=== PATIENT | male | born 1960 | race Caucasian/White ===

== ENCOUNTER 2016-04-27 07:57 | Day surgery (SDC) | payer BC ==
[~2016-04-27] VITALS: Ht 175.3 cm; Wt 70.5 kg
[2016-04-27] VITALS (9 sets, daily range): BP systolic 115–203; BP diastolic 68–114; PULSE 49–70; RESP 16–20; TEMP 97.7–98.1; O2SAT 93–98
[~2016-04-27 07:57] MED LIST: ATEN-104 PO; BUPR-197 PO; EMTR1TAB2 PO/TUBE; ENAL10 PO; FENO50TA PO; FINA5TAB77 PO; LIPI10TA PO; PARO10TA PO; TAMS0.4C67 PO; VALT1TAB26 PO
[2016-04-27] MEDS ORDERED: VALA1TAB PO (08:44)
[2016-04-27] MEDS ORDERED: EMTR1TAB2 PO (08:44)
[2016-04-27] MEDS ORDERED: TAMS0.4C4 PO (08:44)
[2016-04-27] MEDS ORDERED: BUPR75TA PO (08:44)
[2016-04-27] MEDS ORDERED: CALC1TAB87 PO (08:44)
[2016-04-27] MEDS ORDERED: FINA5TAB2 PO (08:44)
[2016-04-27] MEDS ORDERED: ATOR1TAB18 PO (08:44)
[2016-04-27] MEDS ORDERED: ENAL20TA PO (08:44)
[2016-04-27] MEDS ORDERED: FENO145T2 PO (08:44)
[2016-04-27] MEDS ORDERED: PARO20TA2 PO (08:44)
[2016-04-27] MEDS ORDERED: ASPI1TAB69 PO (08:44)
[2016-04-27] MEDS ORDERED: ATEN25TA PO (08:44)
[2016-04-27] MEDS ORDERED: SODIUM CHLOR 0.9% 1000 ML INJ 1,000 ML IV SCH (08:45)
[2016-04-27] MEDS ORDERED: fentaNYL CITRATE 250 MCG/5 ML AMP ONE (08:46)
[2016-04-27] MEDS ORDERED: MIDAZOLAM HCL 5 MG/5 ML VIAL ONE (08:47)
[2016-04-27] MEDS ORDERED: LIDOCAINE 1%/EPINEPHrine 1:100,000 SOLN 20 ML VIAL ONE (09:42)
[2016-04-27] MEDS ORDERED: THROMBIN (TOPICAL) 5,000 UNIT VIAL ONE (10:32)
[2016-04-27] MEDS ORDERED: GELATIN 12 MM/7 MM FOAM ONE (10:35)
--- NOTE | 2016-04-27 11:23 | RADRPT ---
EXAM DATE/TIME: 04/27/2016 10:14 [place] COMPARISON: No previous studies available for comparison. INDICATIONS : Right renal mass. SEDATION TIME: 45 minutes BIOPSY SITE: MEDICATION(S): 1.) 5 mg midazolam (Versed) IV 2.) 150 mcg fentanyl (Sublimaze) FASHION MARKETER(s): Amarilis Antunez RN DEVICE(S): 1.) 18 gauge Latham blunt needle 2.) 18 gauge Temno core biopsy needle MEDICAL HISTORY : Hypertension. Hepatitis C. SURGICAL HISTORY : None. ENCOUNTER: Initial ACUITY: 1 day PAIN SCORE: 0/10 LOCATION: Bilateral abdomen A total of one core specimen(s) were obtained and sent to the laboratory for pathologic evaluation. Approximately 20 cc of bloody fluid was also aspirated and sent for cytology. PROCEDURE: 1. CT guided renal right biopsy and aspiration. 2. Conscious sedation with continuous EKG and oximetry monitoring. 3. EKG and oximetry remained stable throughout the procedure. Prior to the procedure informed consent was obtained. Any appropriate prior imaging studies were rev iewed. The site was prepped in a sterile fashion. Full sterile technique was used, including cap, mask, dionne rile gloves and gown and a large sterile sheet. Hand hygiene and 2% chlorhexidine and/or betadine/al cohol prep was utilized per protocol for cutaneous antisepsis. The skin and subcutaneous tissues wer e infiltrated with local anesthetic solution. With CT guidance the previously identified target was localized. An 18 gauge Latham blunt needle was placed into the cystic mass and approximately 20 cc of bloody fluid was removed and sent for laborat ory evaluation. A Biopsy was also performed using the prescribed needle as above. Adequate hemostasi s was obtained with compression at the puncture site. A combination solution of thrombin and Gelfoam was injected along the surface of the cystic mass afte r the biopsy. Follow-up CT scan reveals no hemorrhage. The patient tolerated the procedure well and there were no complications. The patient was returned to the Radiology Outpatient Unit in stable condition. CONCLUSION: Uncomplicated CT guided biopsy and aspiration of a complex right cystic renal mass. Malik Woodruff MD on April 27, 2016 at 11:14 Board Certified Radiologist. This report was verified electronically.
[2016-04-27] MEDS ORDERED: HYDROmorphone HCL 2 MG TAB PO PRN (11:30)
[2016-04-27 11:31] LABS: AUTOMATED NEUTROPHIL # 4.2 TH/MM3 (1.8-7.7); BASOPHIL % 0.5 % (0.0-2.0); EOSINOPHIL # 0.2 TH/MM3 (0-0.4); EOSINOPHIL % 2.2 % (0.0-4.0); HEMATOCRIT 42.3 % (39.0-51.0); HEMO FLAGS DIFF FINAL; LYMPH % 30.1 % (9.0-44.0); LYMPHOCYTE # 2.1 TH/MM3 (1.0-4.8); MEAN CELL VOLUME 96.6 FL (80.0-100.0); MEAN CORPUSCULAR HEMOGLOBIN 33.1 PG (27.0-34.0); MEAN CORPUSCULAR HGB CONC 34.3 % (32.0-36.0); MONO % 6.9 % (0.0-8.0); NEUT % 60.3 % (16.0-70.0); PLATELET COUNT 214 TH/MM3 (150-450); RED BLOOD COUNT 4.38 MIL/MM3 (4.50-5.90); RED CELL DISTRIBUTION WIDTH 13.7 % (11.6-17.2)
[2016-04-27 13:28] LABS: AUTOMATED NEUTROPHIL # 4.8 TH/MM3 (1.8-7.7); BASOPHIL % 0.4 % (0.0-2.0); EOSINOPHIL # 0.1 TH/MM3 (0-0.4); EOSINOPHIL % 1.6 % (0.0-4.0); HEMATOCRIT 40.2 % (39.0-51.0); HEMO FLAGS DIFF FINAL; LYMPH % 23.4 % (9.0-44.0); LYMPHOCYTE # 1.7 TH/MM3 (1.0-4.8); MEAN CELL VOLUME 95.9 FL (80.0-100.0); MEAN CORPUSCULAR HEMOGLOBIN 33.5 PG (27.0-34.0); MEAN CORPUSCULAR HGB CONC 34.9 % (32.0-36.0); MONO % 6.7 % (0.0-8.0); NEUT % 67.9 % (16.0-70.0); PLATELET COUNT 185 TH/MM3 (150-450); RED BLOOD COUNT 4.19 MIL/MM3 (4.50-5.90); RED CELL DISTRIBUTION WIDTH 13.9 % (11.6-17.2); WHITE BLOOD COUNT 7.1 TH/MM3 (4.0-11.0)
== END 2016-04-27 15:10 | disposition home or self-care (01) ==
LOC: HRAD 07:57 → HRIP 07:59 → EDSTATUS 08:00 → HRAD 15:10
PROVIDERS: ATTEND Specialist
DX: C64.1 Malignant neoplasm of right kidney, except renal pelvis (principal); B19.20 Unspecified viral hepatitis C without hepatic coma; I10 Essential (primary) hypertension
CPT/HCPCS: 50200; 77012; 85025; 88305; 88341; 88342; J2250; J3010; J7030; 88173

== ENCOUNTER 2016-05-11 13:15 | Inpatient (IN) | payer BC ==
[~2016-05-11] VITALS: Ht 175.3 cm; Wt 74.1 kg
[~2016-05-11 13:15] MED LIST changes: +ASPI1TAB69 PO; -ATEN-104 PO; +ATEN25TA PO; +ATOR1TAB18 PO; -BUPR-197 PO; +BUPR75TA PO; +CALC1TAB87 PO; +EMTR1TAB2 PO; -EMTR1TAB2 PO/TUBE; -ENAL10 PO; +ENAL20TA PO; +FENO145T2 PO; -FENO50TA PO; +FINA5TAB2 PO; -FINA5TAB77 PO; -LIPI10TA PO; -PARO10TA PO; +PARO20TA2 PO; +TAMS0.4C4 PO; -TAMS0.4C67 PO; +VALA1TAB PO; -VALT1TAB26 PO
[2016-05-19] MEDS ORDERED: ceFAZolin 1,000 MG/NS 100 ML IV PRN ×2 (05:45)
[2016-05-19] MEDS ORDERED: METOPROLOL TARTRATE 25 MG TAB PO PRN (06:00)
[2016-05-19] MEDS ORDERED: SODIUM CHLORID 0.9% 500 ML IV SCH (06:00)
[2016-05-19] MEDS ORDERED: LACTATED RINGER'S 1000 ML IV SCH (06:00)
[2016-05-19] MEDS ORDERED: INSULIN HUMAN REGULAR 1,000 UNITS/10 ML VIAL SQ PRN (06:00)
[2016-05-19 06:24] VITALS: BP 163/87; PULSE 53; RESP 20; TEMP 98; O2SAT 100
[2016-05-19] MEDS ORDERED: fentaNYL CITRATE 250 MCG/5 ML AMP ONE (10:17)
[2016-05-19] MEDS ORDERED: VASOPRESSIN INJ 20 UNITS/ML VIAL ONE (10:17)
[2016-05-19] MEDS ORDERED: ceFAZolin INJ 1,000 MG VIAL IV ONE (10:40)
[2016-05-19] MEDS ORDERED: SUGAMMADEX SODIUM 200 MG/2 ML VIAL IV PUSH ONE ×2 (10:45)
[2016-05-19 11:02] LABS: BLOOD GAS BASE EXCESS -1.8 mmol/L (-2-2); BLOOD GAS CARBOXYHEMOGLOBIN 2.9 % (0-4); BLOOD GAS HCO3 23 mmol/L (22-26); BLOOD GAS METHEMOGLOBIN 1.3 % (0-2); BLOOD GAS O2 HGB SATURATION 95 % (90-100); BLOOD GAS OXYGEN CONTENT 17.7 Vol % (12.0-20.0); BLOOD GAS PCO2 43 mmHg (38-42); BLOOD GAS PO2 217 mmHg (61-120); BLOOD GAS TOTAL HGB 12.9 G/DL (12.0-16.0); CRITICAL VALUE NO; STAT YES; TEMP CORR TO 98.6
[2016-05-19 11:25] LABS: BICARBONATE 24.5 MEQ/L (21.0-32.0); MAGNESIUM 1.4 MG/DL (1.5-2.5); POTASSIUM 3.7 MEQ/L (3.5-5.1)
--- NOTE | 2016-05-19 11:40 | PD.OP ---
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 Osmin Yap MD May 19, 2016 11:40
[2016-05-19] MEDS ORDERED: POTASSIUM CHLOR 20 MEQ PREMIX 100 ML ONE (11:44)
[2016-05-19] MEDS ORDERED: ONDANSETRON HCL 4 MG/2 ML VIAL IV PUSH PRN (11:45)
[2016-05-19] MEDS ORDERED: oxyCODONE/ACETAMINOPHEN 5 MG/325 MG TAB PO PRN (11:45)
[2016-05-19] MEDS ORDERED: MORPHINE SULFATE 4 MG/ML INJ IV PUSH PRN (11:45)
[2016-05-19] MEDS ORDERED: PHENYLEPH/NS 1000 MCG/10 ML SYR IV ONE (12:00)
[2016-05-19] MEDS ORDERED: SODIUM CHLOR 0.9% 250 ML INJ 250 ML IV ONE (12:00)
[2016-05-19] MEDS ORDERED: LACTATED RINGER'S 1000 ML INJ 3,000 ML IV ONE (12:00)
[2016-05-19] MEDS ORDERED: PROPOFOL 200 MG/20 ML AMP IV ONE (12:00)
[2016-05-19] MEDS ORDERED: ePHEDrine/NS 25 MG/5 ML SYR IV ONE (12:00)
[2016-05-19] MEDS ORDERED: NORMOSOL R INJ 2,000 ML IV ONE (12:00)
[2016-05-19] MEDS ORDERED: ONDANSETRON HCL 4 MG/2 ML VIAL IV PUSH ONE (12:00)
[2016-05-19] MEDS: SODIUM CHLOR 0.9% 1000 ML INJ 1,000 ML IV SCH ×2 (12:10→19:40)
[2016-05-19] MEDS ORDERED: LABETALOL HCL 100 MG/20 ML VIAL ONE (12:12)
[2016-05-19] MEDS ORDERED: ACETAMINOPHEN 1000 MG/100 ML VIAL IV ONE (12:15)
[2016-05-19] MEDS ORDERED: *morphine SULFATE 8 MG/ML PERIprocedure ONLY ONE ×2 (12:17→12:38)
[2016-05-19] MEDS ORDERED: MIDAZOLAM HCL 2 MG/2 ML VIAL ONE (12:20)
[2016-05-19] MEDS ORDERED: *MEPERIDINE 25 MG INJ VIAL PERIprocedural Use ONLY ONE (12:23)
[2016-05-19] MEDS ORDERED: DO NOT ADM ANY ANTICOAGULANT DRUGS XX PRN (12:30)
[2016-05-19 12:54] LABS: BASOPHIL % 0.3 % (0.0-2.0); EOSINOPHIL # 0.1 TH/MM3 (0-0.4); EOSINOPHIL % 0.4 % (0.0-4.0); HEMO FLAGS DIFF FINAL; LYMPH % 9.4 % (9.0-44.0); LYMPHOCYTE # 1.3 TH/MM3 (1.0-4.8); MEAN CELL VOLUME 96.9 FL (80.0-100.0); MONO % 5.3 % (0.0-8.0); NEUT % 84.6 % (16.0-70.0); PLATELET COUNT 198 TH/MM3 (150-450); RED BLOOD COUNT 3.92 MIL/MM3 (4.50-5.90); RED CELL DISTRIBUTION WIDTH 14.3 % (11.6-17.2); WHITE BLOOD COUNT 14.2 TH/MM3 (4.0-11.0)
[2016-05-19 13:10] LABS: BICARBONATE 24.1 MEQ/L (21.0-32.0); POTASSIUM 3.8 MEQ/L (3.5-5.1)
[2016-05-19] MEDS: PANTOPRAZOLE SODIUM 40 MG VIAL IV PUSH SCH (13:10)
[2016-05-19 13:18] VITALS: BP 137/71; PULSE 73; RESP 17; TEMP 95.9; O2SAT 100
[2016-05-19] MEDS: FINASTERIDE 5 MG TAB PO SCH (15:12)
[2016-05-19] MEDS: oxyCODONE/ACETAMINOPHEN 5 MG/325 MG TAB PO PRN ×2 (15:18→19:40)
[2016-05-19 16:00] VITALS: BP 128/78; PULSE 64; RESP 18; TEMP 95.8; O2SAT 99
[2016-05-19 16:08] VITALS: O2SAT 100
--- NOTE | 2016-05-19 17:08 | MB ---
cc: DEEPAK MCDERMOTT DO DATE OF CONSULTATION: 05/19/2016 REASON FOR CONSULTATION: Possible EKG changes. HISTORY OF PRESENT ILLNESS Max Mcdonald is a pleasant 55-year-old male who presents to [facility] for elective right kidney removal via robotic approach by Dr. Yap on May 19, 2016. Preoperatively he had an EKG done which, the date is cut off but appears to be maybe May 14, 2016 which shows sinus bradycardia at 53 beats per minute, T-wave inversions bilateral, mildly biphasic T-waves, anteriorly cannot rule out ischemia. He underwent no further testing from a cardiovascular standpoint preoperatively. Today he had a right radical nephrectomy by Dr. Yap. Once he was under anesthesia they started to notice possible change into the leads with ST depressions. Repeat EKG was done at that time and per their recommendations, there was no significant changes in the EKG and they continued on with the case. During the case he had no episodes of hypotension. I am seeing him postop any currently just has pain appropriately over the areas in the right lower quadrant where surgery was done. He denies chest pain or shortness of breath and is currently hemodynamically stable. PAST MEDICAL HISTORY 1. Hypertension for number of years. 2. Hepatitis C. 3. HIV positive. HIV positive with last known CD-4 count greater than 1000. PAST SURGICAL HISTORY 1. Cataract surgery bilaterally. 2. A right renal mass biopsy (April 02, 2016) 3. Right radical nephrectomy from a robotic standpoint (May 19, 2016). ALLERGIES AMOXICILLIN. MEDICATIONS 1. Finasteride 5 mg daily 2. Flomax 0.8 mg every night 3. Enalapril 20 mg daily 4. Budeprion 75 mg daily 5. Paroxetine 20 mg daily 6. Odessey 1 tablet daily 7. Atenolol 25 mg daily 8. Fenofibrate 145 mg daily 9. Lipitor 80 mg every night 10. Aspirin 81 mg daily 11. Acyclovir 1000 mg daily SOCIAL HISTORY The patient previously smoked a number years ago but quit. Denies alcohol abuse. Denies drug abuse. FAMILY HISTORY Denies premature coronary artery disease or sudden cardiac within the family. REVIEW OF SYSTEMS 14 systems were reviewed including osteopathic pertinent positives and negatives above, otherwise negative. PHYSICAL EXAMINATION VITAL SIGNS: Temperature 96.0, heart rate 75, blood pressure 137/71, respirations 17, pulse ox 100% on 2 liters. IN GENERAL: The patient appears well in no acute distress, alert, awake and oriented x3. Extraocular muscles intact. Mucous membranes moist. NECK: Supple. No JVD at 45 degrees. No carotid bruits heard bilaterally. Carotid upstroke is brisk in nature. HEART: Heart is regular rate and rhythm. Positive first and second heart sounds with no murmurs, gallops or rubs. PMI is nondisplaced. LUNGS: The lungs are clear to auscultation bilaterally. No wheezes, rales or rhonchi. ABDOMEN: Soft, mildly tender in the right lower quadrant over previous incisions. No guarding noted. EXTREMITIES: Show no clubbing, cyanosis or edema. Femoral and distal pulses intact bilaterally. NEUROLOGICALLY: No focal deficits. SKIN: Warm, dry and intact. OSTEOPATHICALLY: No kyphoscoliosis, lordosis or paraspinal tender points. RADIOLOGIC: Electrocardiogram (May 19, 2016 at 0855, intraoperatively) sinus bradycardia at 43 beats per minute, T-wave inversions anterior laterally. Possible LVH by voltage criteria with secondary changes versus ischemia. IMPRESSION 1. 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 Questionable EKG changes intraoperatively possibly due to LVH versus ischemia. 3. Longstanding hypertension 4. History HIV 5. History of hepatitis C. RECOMMENDATIONS 1. There was questionable EKG changes. After anesthesia was induced on Max. He has EKG intraoperatively shows some ST-T wave changes, although these may be secondary to LVH. 2. We will obtain an echo to look at his overall left ventricular function, left ventricular wall thickness and possible wall motion abnormalities. 3. We will check serial troponins to evaluate for possible intraoperative myocardial infarction although at this time I somewhat doubt this. 4. He should continue on his home medications from a cardiovascular standpoint. 5. Further recommendations will be made based on hospital course. Thank you for allowing me to see Max Mcdonald, if there are any questions please do not hesitate to call. Deepak Mcdermott DO VGP/ /3:17 PM /4:40 PM PAYAM
--- NOTE | 2016-05-19 17:11 | EKG ---
Date Performed: 05/19/2016 Time Performed: 08:55:15 PTAGE: 55 years EKG: SINUS BRADYCARDIA MODERATE INTRAVENTRICULAR CONDUCTION DELAY ST DEVIATION AND MARKED T-WAVE ABNORMALITY, CONSIDER ANTEROLATERAL ISCHEMIA ABNORMAL ECG NO PREVIOUS TRACING DOCTOR: Sudeep Barros Interpretating Date/Time 05/19/2016 17:05:44
[2016-05-19] MEDS: DOCUSATE SODIUM 100 MG CAP PO SCH (19:38)
[2016-05-19] MEDS: ATORVASTATIN 80 MG TAB PO SCH (19:38)
[2016-05-19] MEDS: TAMSULOSIN HCL 0.4 MG CAP PO SCH (19:39)
[2016-05-19 20:00] VITALS: BP 150/89; PULSE 61; RESP 19; TEMP 97.6; O2SAT 100
[2016-05-20] VITALS (7 sets, daily range): BP systolic 138–158; BP diastolic 82–90; PULSE 56–66; RESP 16–24; TEMP 97.7–99.1; O2SAT 94–100
[2016-05-20 00:21] LABS: POTASSIUM 3.8 MEQ/L (3.5-5.1)
[2016-05-20] MEDS: oxyCODONE/ACETAMINOPHEN 5 MG/325 MG TAB PO PRN ×3 (04:51→20:55)
[2016-05-20] MEDS: SODIUM CHLOR 0.9% 1000 ML INJ 1,000 ML IV SCH ×3 (05:20→20:00)
--- NOTE | 2016-05-20 07:14 | MP ---
cc: FINESSE RANDHAWA MD, DANIEL A. M.D. DATE OF OPERATION 05/19/2016 PREOPERATIVE DIAGNOSES 1. 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 2. Hepatitis C. POSTOPERATIVE DIAGNOSES 1. 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 2. Hepatitis C. PROCEDURE PERFORMED Right robotic radical nephrectomy. SURGEON MD Marely ANESTHESIA General. COMPLICATIONS None. ANTIBIOTICS Ancef 1 gram IV. DRAINS 6-Syriac Chadwick catheter. SPECIMENS Right kidney for permanent. BLOOD LOSS 50 mL. FLUIDS 2500 mL crystalloids. DISPOSITION Stable to recovery. INDICATIONS The patient is a 55-year-old male who was found to have an incidental right lower pole renal mass approximately 6 cm in size. The patient had a CT guided biopsy that came back consistent with papillary renal cell carcinoma. The treatment options were discussed including laparoscopic-assisted robotic right radical nephrectomy. He elected to proceed with laparoscopic removal of the right kidney. After the risks, benefits and alternatives were explained to the patient including the risk of renal failure and renal dialysis, he elected to proceed and informed consent was obtained. DETAILS OF PROCEDURE The patient was properly identified, brought back to the operating, laid supine on the operating table. Proper time-out was performed under the direction of anesthesiology. The patient was induced under general anesthetic. Preop antibiotics in the form of Ancef 1 gram IV was given prior to start of the procedure. The patient was then prepped and draped in normal sterile surgical fashion and placed in the left lateral decubitus position with right side up. All pressure points were padded, however, prior to making incision the anesthesiologist noticed abnormal changes in his wave pattern on his hse specialist suggestive of a possible myocardial infarction. Therefore we then repositioned the patient back in the supine position. A formal 12-lead EKG was then performed. It did show some minor changes compared to his EKG from 10 days ago. However, it was different than the waveforms on the hse specialist. After discussing with Anesthesia, they thought it would be safe to proceed with the procedure and have a cardiac consult obtained after the case while he was in the hospital. Therefore, we then repositioned the patient into the left lateral decubitus position right side up. All pressure points were padded. Using an 11 blade scalpel, I then made a stab incision just superior and lateral to his umbilicus. A Veress needle was then used to gain access to the abdominal cavity. Pneumoperitoneum was achieved. I then extended the stab incision. Under direct visualization I inserted the 12-mm camera port. The abdominal cavity was then inspected. There was no of any adhesions, no evidence any intraabdominal injury or bleeding. At this time I then placed the remaining ports under direct visualization, beginning with the right-handed, 8-mm office assistant robotic port two fingerbreadths below the subcostal margin and a fingerbreadth away from the camera port. I then placed a 5-mm port in the midline just below the xiphoid process for liver retraction. Under direct visualization I then passed a locking retractor and retracted the liver cephalad. This provided excellent exposure of the upper pole of the right kidney. At this time the other 8-mm robotic port was then placed a handbreadth off of the ASIS and triangulated off of the camera port. A 12-mm office assistant port was then placed in the midline inferior to the umbilicus. Again all ports were placed under direct visualization. At this time the robot was then brought into position and then took down to the white line of Toldt and reflected the colon medially. The renal mass and kidney were easily exposed. The kocherized the duodenum to expose the inferior vena cava. I then carefully dissected off the gonadal vein and spared the gonadal vein. I then developed a space between the ureter and the psoas muscle and retracted the kidney into the anterior abdominal wall. I then dissected up the psoas muscle, along the inferior vena cava until I reached the hilum. At that time I found two separate renal arteries and a renal vein. Each was dissected out circumferentially. The accessory lower pole renal artery was then taken with endovascular GI stapler. The remaining small renal artery and single renal vein were then taken together with endovascular GI stapler. The hilum appeared to be dry. Using the robotic vessel sealer I then took down the upper pole attachments from the liver. This was hemostatic as well. The lateral pole attachments were then freed as well leaving only the ureter intact at the lower pole as well as the tail of Gerota. Using endovascular GI stapler, I divided the ureter and tail of Gerota's. At this point the kidney was completely free and mobilized. It was then placed in an EndoCatch bag for later removal. The hilum was carefully inspected. There is no evidence of any bleeding. The liver appeared to be unharmed as well. At this time the pneumoperitoneum was dropped down to 7 mmHg. Again the hilum and adrenal bed were inspected. Hemostasis was excellent. Three cans of Felipe were then placed in the renal fossa along the hilum and adrenal bed. Again no bleeding was seen. At this time the liver retractor was then removed under direct visualization. The liver was then placed back in proper positioning. The robot was then undocked. I transferred the EndoCatch bag to the left-hand robotic port. This incision was extended. The kidney was removed in the EndoCatch bag and sent off to the pathologist. However, I did divide the epigastrics so there was some minor bleeding. These were controlled with Hem-o-ryan clips. The fascia and peritoneum was closed with a running 1-0 PDS. A second look was then performed inside the abdomen. The incision was free of any bowel within the abdominal cavity. There was no evidence of any bleeding. All ports were then removed under direct visualization including the camera port. The incisions were then closed with 4-0 Monocryl. This concluded the procedure. The patient was extubated and sent to recovery in stable condition. Sponge and needle count was correct at the end of the case. He will be admitted for routine postop care as well as obtaining a cardiac consult due to his abnormal EKG changes. MD SMITHA Marcano/BEN /12:04 PM /6:41 AM
[2016-05-20] MEDS: DOCUSATE SODIUM 100 MG CAP PO SCH ×2 (08:24→20:22)
[2016-05-20] MEDS: ATENOLOL 25 MG TAB PO SCH (08:24)
[2016-05-20] MEDS: buPROPion HCL 75 MG TAB PO SCH (08:24)
[2016-05-20] MEDS: PARoxetine HCL 20 MG TAB PO SCH (08:24)
[2016-05-20] MEDS: valACYclovir HCL 500 MG TAB PO SCH (08:24)
[2016-05-20] MEDS: FINASTERIDE 5 MG TAB PO SCH (08:24)
[2016-05-20] MEDS: ENALAPRIL MALEATE 10 MG TAB PO SCH (08:24)
[2016-05-20] MEDS ORDERED: OXYC1TAB63 PO (08:46)
[2016-05-20] MEDS ORDERED: [UNRECOGNIZED DRUG - OTHER] PO SCH (09:00)
[2016-05-20] MEDS ORDERED: EMTRICITABINE RILPIVIRINE TENOFOVIR ALAFENAM PO SCH (09:00)
--- NOTE | 2016-05-20 09:08 | PD.CARD.PN ---
Subjective Subjective Remarks No chest pain, no shortness of breath, less abdominal pain Objective Medications Current Medications Medications (Trade) Dose Ordered Sig/Ajay Route Start Time Stop Time Status Last Admin (NS 1000 ml Inj) 1,000 ml @ 125 mls/hr Q8H IV 05/19/16 12:00 05/20/16 05:20 (Colace) 100 mg BID PO 05/19/16 21:00 05/20/16 08:24 (Percocet 5-325 Mg) 2 tab Q4H PRN PO 05/19/16 11:45 05/20/16 04:51 (Percocet 5-325 Mg) 1 tab Q4H PRN PO 05/19/16 11:45 (Protonix Inj) 40 mg Q24H IV PUSH 05/19/16 13:00 05/19/16 13:10 Ondansetron HCl 4 mg 4 mg Q6HR PRN IV PUSH 05/19/16 11:45 (Ancef Inj/NS Inj) 100 ml @ 200 mls/hr Q8H IV 05/19/16 14:00 05/20/16 05:20 (Morphine Inj) 3 mg Q3H PRN IV PUSH 05/19/16 11:45 Miscellaneous Information ALL NURSING DEPARTME... UNSCH PRN XX 05/19/16 12:30 05/20/16 12:29 (Tenormin) 25 mg DAILY PO 05/20/16 09:00 05/20/16 08:24 (Lipitor) 80 mg HS PO 05/19/16 21:00 05/19/16 19:38 (Wellbutrin) 75 mg DAILY PO 05/20/16 09:00 05/20/16 08:24 (Vasotec) 20 mg DAILY PO 05/20/16 09:00 05/20/16 08:24 (Proscar) 5 mg DAILY PO 05/19/16 15:00 05/20/16 08:24 (Paxil) 20 mg DAILY PO 05/20/16 09:00 05/20/16 08:24 (Flomax) 0.8 mg HS PO 05/19/16 21:00 05/19/16 19:39 (Valtrex) 1,000 mg DAILY PO 05/20/16 09:00 05/20/16 08:24 Patient Own Medication PT OWN MED:(Emtricitabine-Rilpivi... DAILY PO 05/20/16 09:00 Hold Vital Signs / I&O Vital Signs Date Time Temp Pulse Resp B/P Pulse Ox O2 Delivery O2 Flow Rate FiO2 05/20/16 05:51 18 05/20/16 00:00 98.3 56 18 158/90 100 05/19/16 20:00 97.6 61 19 150/89 100 05/19/16 16:08 100 Nasal Cannula 2.00 05/19/16 16:00 95.8 64 18 128/78 99 05/19/16 13:18 95.9 73 17 137/71 100 05/19/16 12:51 97.8 76 14 140/93 100 Nasal Cannula 2 05/19/16 12:45 74 16 139/88 100 Nasal Cannula 2 05/19/16 12:30 72 17 141/92 100 Nasal Cannula 2 05/19/16 12:15 82 14 151/99 100 Nasal Cannula 2 05/19/16 12:08 97.7 95 15 156/93 100 Nasal Cannula 2 I/O 05/19/16 05/19/16 05/19/16 05/20/16 05/20/16 05/20/16 07:00 15:00 23:00 07:00 15:00 23:00 Intake Total 3275 ml 885 ml 1474 ml Output Total 1050 ml 700 ml 5050 ml Balance 2225 ml 185 ml -3576 ml Intake Oral 240 ml 240 ml IV Total 275 ml 645 ml 1234 ml Other 3000 ml Output Urine Total 700 ml 5050 ml Estimated Blood Loss 50 ml Other 1000 ml # Bowel Movements 0 0 Physical Exam GENERAL: NAD, AAOx3 SKIN: Warm and dry. HEAD: Atraumatic. Normocephalic. EYES: Pupils equal and round. No scleral icterus. No injection or drainage. ENT: No nasal bleeding or discharge. Mucous membranes pink and moist. NECK: Trachea midline. No JVD. CARDIOVASCULAR: Regular rate and rhythm. RESPIRATORY: No accessory muscle use. Clear to auscultation. Breath sounds equal bilaterally. GASTROINTESTINAL: Abdomen appropriate tenderness post-surgery. MUSCULOSKELETAL: Extremities without clubbing, cyanosis, or edema. No obvious deformities. NEUROLOGICAL: Awake and alert. No obvious cranial nerve deficits. Motor grossly within normal limits. Five out of 5 muscle strength in the arms and legs. Normal speech. PSYCHIATRIC: Appropriate mood and affect; insight and judgment normal. Laboratory Laboratory Tests Test 05/19/16 05/19/16 05/19/16 05/19/16 10:40 10:55 12:25 16:38 Sodium Level 141 MEQ/L 141 MEQ/L Potassium Level 3.7 MEQ/L 3.8 MEQ/L Chloride Level 109 MEQ/L 108 MEQ/L Carbon Dioxide Level 24.5 MEQ/L 24.1 MEQ/L Anion Gap 8 MEQ/L 9 MEQ/L Blood Urea Nitrogen 23 MG/DL 24 MG/DL Creatinine 1.58 MG/DL 1.70 MG/DL Estimat Glomerular Filtration 46 ML/MIN 42 ML/MIN Rate Random Glucose 138 MG/DL 129 MG/DL Calcium Level 8.5 MG/DL 8.5 MG/DL Magnesium Level 1.4 MG/DL Blood Gas Puncture Site DRAWN IN OR Blood Gas Patient Temperature 98.6 Blood Gas HCO3 23 mmol/L Blood Gas Base Excess -1.8 mmol/L Blood Gas Oxygen Saturation 95 % Arterial Blood pH 7.35 Arterial Blood Partial 43 mmHg Pressure CO2 Arterial Blood Partial 217 mmHg Pressure O2 Arterial Blood Oxygen Content 17.7 Vol % Arterial Blood 2.9 % Carboxyhemoglobin Arterial Blood Methemoglobin 1.3 % Blood Gas Hemoglobin 12.9 G/DL White Blood Count 14.2 TH/MM3 Red Blood Count 3.92 MIL/MM3 Hemoglobin 12.9 GM/DL Hematocrit 38.0 % Mean Corpuscular Volume 96.9 FL Mean Corpuscular Hemoglobin 33.0 PG Mean Corpuscular Hemoglobin 34.0 % Concent Red Cell Distribution Width 14.3 % Platelet Count 198 TH/MM3 Mean Platelet Volume 9.2 FL Neutrophils (%) (Auto) 84.6 % Lymphocytes (%) (Auto) 9.4 % Monocytes (%) (Auto) 5.3 % Eosinophils (%) (Auto) 0.4 % Basophils (%) (Auto) 0.3 % Neutrophils # (Auto) 12.0 TH/MM3 Lymphocytes # (Auto) 1.3 TH/MM3 Monocytes # (Auto) 0.7 TH/MM3 Eosinophils # (Auto) 0.1 TH/MM3 Basophils # (Auto) 0.0 TH/MM3 CBC Comment DIFF FINAL Differential Comment Troponin I LESS THAN 0.02 NG/ML Test 05/19/16 05/20/16 23:30 03:11 Sodium Level 143 MEQ/L Potassium Level 3.8 MEQ/L Chloride Level 110 MEQ/L Carbon Dioxide Level 26.0 MEQ/L Anion Gap 7 MEQ/L Blood Urea Nitrogen 20 MG/DL Creatinine 1.58 MG/DL Estimat Glomerular Filtration 46 ML/MIN Rate Random Glucose 89 MG/DL Calcium Level 7.9 MG/DL Troponin I 0.02 NG/ML LESS THAN 0.02 NG/ML Assessment and Plan Problem List: (1) Renal cell carcinoma (2) S/p nephrectomy (3) Hypertension (4) LVH (left ventricular hypertrophy) due to hypertensive disease Assessment and Plan 1) No complaints over night 2) Troponins negative x 3 3) Await echocardiogram Cj Alvarez DO May 20, 2016 09:08
--- NOTE | 2016-05-20 11:17 | HHI.PR ---
Subjective Remarks did well overnight. Abdominal pain controlled. Denies CP/SOB. tolerating clears. Passing Flatus. Has not been OOB. Objective Vital Signs Vital Signs Date Time Temp Pulse Resp B/P Pulse Ox O2 Delivery O2 Flow Rate FiO2 05/20/16 08:00 98.3 61 20 151/84 99 05/20/16 05:51 18 05/20/16 00:00 98.3 56 18 158/90 100 05/19/16 20:00 97.6 61 19 150/89 100 05/19/16 16:08 100 Nasal Cannula 2.00 05/19/16 16:00 95.8 64 18 128/78 99 05/19/16 13:18 95.9 73 17 137/71 100 05/19/16 12:51 97.8 76 14 140/93 100 Nasal Cannula 2 05/19/16 12:45 74 16 139/88 100 Nasal Cannula 2 05/19/16 12:30 72 17 141/92 100 Nasal Cannula 2 05/19/16 12:15 82 14 151/99 100 Nasal Cannula 2 05/19/16 12:08 97.7 95 15 156/93 100 Nasal Cannula 2 I/O 05/19/16 05/19/16 05/19/16 05/20/16 05/20/16 05/20/16 07:00 15:00 23:00 07:00 15:00 23:00 Intake Total 3275 ml 885 ml 1474 ml 120 ml Output Total 1050 ml 700 ml 5050 ml Balance 2225 ml 185 ml -3576 ml 120 ml Intake Oral 240 ml 240 ml 120 ml IV Total 275 ml 645 ml 1234 ml Other 3000 ml Output Urine Total 700 ml 5050 ml Estimated Blood Loss 50 ml Other 1000 ml # Bowel Movements 0 0 Result Diagram: 05/19/16 1225 05/19/16 2330 Objective Remarks NAD. A/O x 3 RRR non-labored respirations abd soft, non distended, NT. No peritoneal signs. dressing dry Ext NT. no c/c/e Assessment and Plan Assessment and Plan POD #1 s/p Right Robotic Radical Nephrectomy -Advance diet -Good UOP -Ambulate -GI/DVT -Hep lock -Appreciate Cardiology input. Await Echo. -Likely d/c home tomorrow Osmin Yap MD May 20, 2016 11:17
[2016-05-20] MEDS: PANTOPRAZOLE SODIUM 40 MG VIAL IV PUSH SCH (13:01)
--- NOTE | 2016-05-20 15:07 | EC ---
Study Study Date:05/20/2016 STUDY CONCLUSIONS SUMMARY - Procedure narrative: Transthoracic echocardiography. Image quality was poor. Scanning was performed from the parasternal, apical, and subcostal acoustic windows. - Left ventricle: The cavity size was normal. Wall thickness was normal. Systolic function was normal. The estimated ejection fraction was in the range of 50% to 55%. Wall motion was normal; there were no regional wall motion abnormalities. - Aortic valve: Valve area: 3.17cm^2 (Vmax). - Mitral valve: Mild regurgitation. If LV function is below 40, please consider prescribing an ACEI or ARB or document rationale for non-use. PROCEDURE DATA STUDY STATUS: Elective. Procedure: Transthoracic echocardiography. Image quality was poor. Scanning was performed from the parasternal, apical, and subcostal acoustic windows. Study completion: The patient tolerated the procedure well. Transthoracic echocardiography. M-mode, complete 2D, complete spectral Doppler, and color Doppler. Height: Height: 69in. Weight: Weight: 162.7lb. Body mass index: BMI: 24.1kg/m^2. Body surface area: BSA: 1.89m^2. Patient status: Inpatient. CARDIAC ANATOMY LEFT VENTRICLE: The cavity size was normal. Wall thickness was normal. Systolic function was normal. The estimated ejection fraction was in the range of 50% to 55%. Wall motion was normal; there were no regional wall motion abnormalities. AORTIC VALVE: Trileaflet; normal thickness leaflets. Doppler: Transvalvular velocity was within the normal range. There was no stenosis. No regurgitation. Valve area: 3.17cm^2 (Vmax). Indexed valve area: 1.68cm^2/m^2 (Vmax). AORTA: Aortic root: The aortic root was normal in size. MITRAL VALVE: Structurally normal valve. Doppler: Transvalvular velocity was within the normal range. There was no evidence for stenosis. Mild regurgitation. LEFT ATRIUM: The atrium was normal in size. RIGHT VENTRICLE: The cavity size was normal. Wall thickness was normal. PULMONIC VALVE: Doppler: Transvalvular velocity was within the normal range. There was no evidence for stenosis. No regurgitation. TRICUSPID VALVE: Structurally normal valve. Doppler: Transvalvular velocity was within the normal range. No regurgitation. PULMONARY ARTERY: The main pulmonary artery was normal-sized. Systolic pressure was within the normal range. RIGHT ATRIUM: The atrium was normal in size. PERICARDIUM: There was no pericardial effusion. SYSTEMIC VEINS: Inferior vena cava: The vessel was normal in size. Patient weight: 162.7lb _Ejection fraction:_ 65-75% _Fractional shortening:_ 32% up to 5Kg 5-11.5Kg 11.6-22.9Kg 23-45Kg 45-57Kg Aortic Root 7-13 <17 13-22 17-27 17-27 LA diam 6-13 <23 24-38 33-47 37-40 RVID 10-17 7-15 7-15 7-18 8-17 LVIDd 12-22 <32 24-38 33-47 37-40 LVPW 2-4 3-6 5-7 6-8 7-8 IVS 2-4 3-6 5-7 6-8 7-8 BASIC MEASUREMENTS ADULT NORMAL Left ventricle LV internal dimension, ED, chordal *56.4 mm 43-52 level, PLAX LV internal dimension, ES, chordal *47.4 mm 23-38 level, PLAX Fractional shortening, chordal level, *16 % >29 PLAX LV posterior wall thickness, ED 8.38 mm IVS/LVPW ratio, ED 1.05 <1.3 Ventricular septum Septal thickness, ED 8.77 mm Aortic valve Leaflet separation 22 mm 15-26 BASIC MEASUREMENTS ADULT NORMAL Aortic valve Leaflet separation 22 mm 15-26 Aorta Root diameter, ED 37 mm 20-37 Left atrium Anterior-posterior dimension, ES 33 mm 19-40 Anterior-posterior dimension index, ES 1.75 cm/m^2 <2.2 LA/aortic root ratio 0.89 DOPPLER MEASUREMENTS ADULT NORMAL Aortic valve Peak velocity, S 103 cm/s Valve area, Vmax 3.17 cm^2 Valve area index, Vmax 1.68 cm^2/m^2 Mitral valve Peak E-wave velocity 70.6 cm/s Peak A-wave velocity 56.8 cm/s Deceleration time *261 ms 150-230 Peak E/A ratio 1.2 Maximal regurgitant velocity 268 cm/s Pulmonic valve Peak velocity, S 113 cm/s LEGEND: Mean values are shown as u=mean value. Asterisk (*) beard values outside specified normal range. Prepared and signed by Rg Brush [id number]
[2016-05-20] MEDS: ATORVASTATIN 80 MG TAB PO SCH (20:22)
[2016-05-20] MEDS: TAMSULOSIN HCL 0.4 MG CAP PO SCH (20:22)
[2016-05-21] VITALS: BP 175/97; PULSE 65; RESP 18; TEMP 98.6; O2SAT 96
[2016-05-21] MEDS: SODIUM CHLOR 0.9% 1000 ML INJ 1,000 ML IV SCH (04:00)
[2016-05-21] MEDS: oxyCODONE/ACETAMINOPHEN 5 MG/325 MG TAB PO PRN (05:44)
[2016-05-21 08:00] VITALS: BP 203/95; PULSE 60; RESP 16; TEMP 97.2; O2SAT 96
[2016-05-21] MEDS: FINASTERIDE 5 MG TAB PO SCH (09:05)
[2016-05-21] MEDS: DOCUSATE SODIUM 100 MG CAP PO SCH (09:05)
[2016-05-21] MEDS: valACYclovir HCL 500 MG TAB PO SCH (09:05)
[2016-05-21] MEDS: buPROPion HCL 75 MG TAB PO SCH (09:05)
[2016-05-21] MEDS: PARoxetine HCL 20 MG TAB PO SCH (09:05)
[2016-05-21] MEDS: ENALAPRIL MALEATE 10 MG TAB PO SCH (09:05)
[2016-05-21] MEDS: ATENOLOL 25 MG TAB PO SCH (09:05)
[2016-05-21 10:04] VITALS: BP 156/89; PULSE 60; RESP 18; TEMP 98.4; O2SAT 95
[2016-05-21 12:00] VITALS: BP 187/105; PULSE 57; RESP 16; TEMP 98.3; O2SAT 97
--- NOTE | 2016-05-21 12:11 | PD.CARD.PN ---
Subjective Subjective Remarks No chest pain, no shortness of breath, appropriate abdominal pain Up and ambulating Objective Medications Current Medications Medications (Trade) Dose Ordered Sig/Ajay Route Start Time Stop Time Status Last Admin (NS 1000 ml Inj) 1,000 ml @ 125 mls/hr Q8H IV 05/19/16 12:00 05/20/16 05:20 (Colace) 100 mg BID PO 05/19/16 21:00 05/21/16 09:05 (Percocet 5-325 Mg) 2 tab Q4H PRN PO 05/19/16 11:45 05/21/16 05:44 (Percocet 5-325 Mg) 1 tab Q4H PRN PO 05/19/16 11:45 (Protonix Inj) 40 mg Q24H IV PUSH 05/19/16 13:00 05/20/16 13:01 Ondansetron HCl 4 mg 4 mg Q6HR PRN IV PUSH 05/19/16 11:45 05/20/16 10:11 (Ancef Inj/NS Inj) 100 ml @ 200 mls/hr Q8H IV 05/19/16 14:00 05/21/16 05:37 (Morphine Inj) 3 mg Q3H PRN IV PUSH 05/19/16 11:45 (Tenormin) 25 mg DAILY PO 05/20/16 09:00 05/21/16 09:05 (Lipitor) 80 mg HS PO 05/19/16 21:00 05/20/16 20:22 (Wellbutrin) 75 mg DAILY PO 05/20/16 09:00 05/21/16 09:05 (Vasotec) 20 mg DAILY PO 05/20/16 09:00 05/21/16 09:05 (Proscar) 5 mg DAILY PO 05/19/16 15:00 05/21/16 09:05 (Paxil) 20 mg DAILY PO 05/20/16 09:00 05/21/16 09:05 (Flomax) 0.8 mg HS PO 05/19/16 21:00 05/20/16 20:22 (Valtrex) 1,000 mg DAILY PO 05/20/16 09:00 05/21/16 09:05 Patient Own Medication PT OWN MED:(Emtricitabine-Rilpivi... DAILY PO 05/20/16 09:00 Hold Vital Signs / I&O Vital Signs Date Time Temp Pulse Resp B/P Pulse Ox O2 Delivery O2 Flow Rate FiO2 05/21/16 10:04 98.4 60 18 156/89 95 05/21/16 08:00 97.2 60 16 203/95 96 05/21/16 06:44 20 05/21/16 00:00 98.6 65 18 175/97 96 05/20/16 20:00 97.7 66 16 154/84 97 05/20/16 18:51 97 Nasal Cannula 2.00 05/20/16 16:00 99.1 64 24 152/85 97 05/20/16 13:51 94 21 I/O 05/20/16 05/20/16 05/20/16 05/21/16 05/21/16 05/21/16 07:00 15:00 23:00 07:00 15:00 23:00 Intake Total 1474 ml 1080 ml 240 ml 240 ml Output Total 5050 ml 600 ml 600 ml 900 ml Balance -3576 ml 480 ml -360 ml -660 ml Intake Oral 240 ml 1080 ml 240 ml 240 ml IV Total 1234 ml Output Urine Total 5050 ml 300 ml 600 ml 900 ml Stool Total 300 ml # Voids 2 # Bowel Movements 0 0 0 Physical Exam GENERAL: NAD, AAOx3 SKIN: Warm and dry. HEAD: Atraumatic. Normocephalic. EYES: Pupils equal and round. No scleral icterus. No injection or drainage. ENT: No nasal bleeding or discharge. Mucous membranes pink and moist. NECK: Trachea midline. No JVD. CARDIOVASCULAR: Regular rate and rhythm. RESPIRATORY: No accessory muscle use. Clear to auscultation. Breath sounds equal bilaterally. GASTROINTESTINAL: Abdomen appropriate tenderness post-surgery. MUSCULOSKELETAL: Extremities without clubbing, cyanosis, or edema. No obvious deformities. NEUROLOGICAL: Awake and alert. No obvious cranial nerve deficits. Motor grossly within normal limits. Five out of 5 muscle strength in the arms and legs. Normal speech. PSYCHIATRIC: Appropriate mood and affect; insight and judgment normal. Assessment and Plan Problem List: (1) Renal cell carcinoma (2) S/p nephrectomy (3) Hypertension (4) LVH (left ventricular hypertrophy) due to hypertensive disease Assessment and Plan 1) No complaints over night 2) Troponins negative x 3 3) Echo with no wall motion abnormalities, wall thickness measured as normal although fair to poor imaging, but visually appears to be LVH which would go with his EKG 4) Cardiovascularly stable for discharge, asked him to follow up in the office in 4-6 weeks, will see Cj London DO May 21, 2016 12:11
--- NOTE | 2016-05-21 13:10 | HHI.DS ---
Discharge Summary Admission Date May 19, 2016 at 05:26 Discharge Date: May 21, 2016 Admitting Diagnosis Renal Cell Carcinoma Procedures Right Robotic Radical Nephrectomy CBC/BMP: 05/19/16 1225 05/19/16 2330 Significant Findings Laboratory Tests Test 05/19/16 05/19/16 05/19/16 05/19/16 10:40 10:55 12:25 16:38 Chloride Level 109 MEQ/L 108 MEQ/L (98-107) (98-107) Blood Urea Nitrogen 23 MG/DL (7-18) 24 MG/DL (7-18) Creatinine 1.58 MG/DL 1.70 MG/DL (0.60-1.30) (0.60-1.30) Estimat Glomerular Filtration 46 ML/MIN (>89) 42 ML/MIN (>89) Rate Random Glucose 138 MG/DL 129 MG/DL (74-106) (74-106) Magnesium Level 1.4 MG/DL (1.5-2.5) Arterial Blood pH 7.35 (7.380-7.420) Arterial Blood Partial 43 mmHg (38-42) Pressure CO2 Arterial Blood Partial 217 mmHg Pressure O2 (61-120) White Blood Count 14.2 TH/MM3 (4.0-11.0) Red Blood Count 3.92 MIL/MM3 (4.50-5.90) Hemoglobin 12.9 GM/DL (13.0-17.0) Hematocrit 38.0 % (39.0-51.0) Neutrophils (%) (Auto) 84.6 % (16.0-70.0) Neutrophils # (Auto) 12.0 TH/MM3 (1.8-7.7) Troponin I LESS THAN 0.02 NG/ML (0.02-0.05) Test 05/19/16 05/20/16 23:30 03:11 Chloride Level 110 MEQ/L (98-107) Blood Urea Nitrogen 20 MG/DL (7-18) Creatinine 1.58 MG/DL (0.60-1.30) Estimat Glomerular Filtration 46 ML/MIN (>89) Rate Calcium Level 7.9 MG/DL (8.5-10.1) Troponin I LESS THAN 0.02 NG/ML (0.02-0.05) Hospital Course 55 yo male was admitted following a Right Robotic Radical Nephrectomy. He did well. Tolerating regular diet on POD #1. Catheter was removed and voiding on own. His bowel function returned immediately. Cardiology was consulted due to EKG changes during surgery. He was discharged home POD#2. Pt Condition on Discharge: Good Discharge Disposition: Discharge Home Discharge Instructions DIET: Follow Instructions for: Heart Healthy Diet Activities you can perform: Full Weight Bearing, Shower Only-No Bath Activities to avoid: Strenuous Activity New Medications: Oxycodone-Acetaminophen (Oxycodone-Acetaminophen) 5-325 mg Tab 2 TAB PO Q4H PRN PAIN GREATER THAN 5 #30 Ref 0 TAB Osmin Yap MD May 21, 2016 13:10
== END 2016-05-21 15:05 | disposition home or self-care (01) | DRG 658 ==
LOC: HSDI 05-19 05:26 → N07A 05-19 13:06
PROVIDERS: ADMIT Urology; ATTEND Urology
PROC: 8E0W4CZ Robotic Assisted Procedure of Trunk Region, Percutaneous Endoscopic Approach (ICD-10-PCS; 2016-05-19)
PROC: 0TT04ZZ Resection of Right Kidney, Percutaneous Endoscopic Approach (ICD-10-PCS; principal; 2016-05-19 07:48)
DX: C64.1 Malignant neoplasm of right kidney, except renal pelvis (principal); I11.9 Hypertensive heart disease without heart failure; B19.20 Unspecified viral hepatitis C without hepatic coma; Z21 Asymptomatic human immunodeficiency virus [HIV] infection status; Z87.891 Personal history of nicotine dependence; Z88.0 Allergy status to penicillin
CPT/HCPCS: 76937; 80048; 82805; 83735; 84484; 85025; 86850; 86900; 86901; 88307; 93005; 93306; 94150; C9113; J0131; J0690; J2175; J2250; J2270; J2370; J2405; J3010; J3480; J7030; J7050; J7120

== ENCOUNTER 2017-04-29 17:00 | Inpatient (IN) | payer BC ==
[2017-04-29] MEDS ORDERED: SODIUM CHLORIDE 0.9% FLUSH 10 ML FLUSH IV FLUSH ×2 (17:45→20:15)
[2017-04-29 17:59] LABS: AUTOMATED NEUTROPHIL # 5.9 TH/MM3 (1.8-7.7); BASOPHIL % 0.1 % (0.0-2.0); HEMATOCRIT 37.7 % (39.0-51.0); HEMO FLAGS DIFF FINAL; HEMOGLOBIN 13.1 GM/DL (13.0-17.0); LYMPH % 11.1 % (9.0-44.0); LYMPHOCYTE # 0.8 TH/MM3 (1.0-4.8); MEAN CELL VOLUME 99.2 FL (80.0-100.0); MEAN CORPUSCULAR HEMOGLOBIN 34.5 PG (27.0-34.0); MEAN CORPUSCULAR HGB CONC 34.7 % (32.0-36.0); MEAN PLATELET VOLUME 8.6 FL (7.0-11.0); MONO % 8.1 % (0.0-8.0); MONOCYTE # 0.6 TH/MM3 (0-0.9); NEUT % 80.7 % (16.0-70.0); PLATELET COUNT 194 TH/MM3 (150-450); RED CELL DISTRIBUTION WIDTH 14.3 % (11.6-17.2); WHITE BLOOD COUNT 7.3 TH/MM3 (4.0-11.0)
[2017-04-29 18:11] LABS: ALBUMIN 3.5 GM/DL (3.4-5.0); ALT (GPT) 39 U/L (12-78); ANION GAP 12 MEQ/L (5-15); AST (GOT) 43 U/L (15-37); BICARBONATE 20.9 MEQ/L (21.0-32.0); BLOOD UREA NITROGEN 143 MG/DL (7-18); CALCIUM 9.6 MG/DL (8.5-10.1); CHLORIDE 100 MEQ/L (98-107); CREATININE 8.61 MG/DL (0.60-1.30); GLOMERULAR FILTRATION RATE 6 ML/MIN (>89); GLUCOSE,RANDOM 109 MG/DL (74-106); POTASSIUM 4.3 MEQ/L (3.5-5.1); SODIUM (NA) 133 MEQ/L (136-145)
[2017-04-29 18:14] LABS: ALKALINE PHOSPHATASE 64 U/L (45-117); TOTAL BILIRUBIN ADULT 0.3 MG/DL (0.2-1.0); TOTAL PROTEIN 7.8 GM/DL (6.4-8.2)
[2017-04-29] MEDS: SODIUM CHLOR 0.9% 1000 ML INJ 1,000 ML IV (18:40)
[2017-04-29] MEDS: cloNIDine HCL 0.1 MG TAB PO (18:40)
[2017-04-29] MEDS ORDERED: NALOXONE HCL 0.4 MG/ML AMP IV PUSH (20:15)
[2017-04-29 20:55] LABS: BILIRUBIN, URINE NEG (NEG); BLOOD, URINE SMALL (NEG); COMMENT (UR) CULTURE INDICATED; CULTURE IF INDICATED CULTURE INDICATED; GLUCOSE,URINE NEG (NEG); KETONE, URINE NEG (NEG); NITRITE,URINE NEG (NEG); PH, URINE 6.5 (5.0-8.5); SPERM, URINE RARE; URINE COLOR LIGHT-YELLOW (YELLW/STRAW); URINE LEUKOCYTE ESTERASE LARGE (NEG)
[2017-04-29] MEDS: predniSONE 10 MG TAB PO (21:01)
[2017-04-29] MEDS: SODIUM CHLORIDE 0.9% FLUSH 10 ML FLUSH IV FLUSH (21:01)
[2017-04-29] MEDS: MORPHINE SULFATE 2 MG/ML INJ IV PUSH (21:02)
[2017-04-30] MEDS: MORPHINE SULFATE 2 MG/ML INJ IV PUSH (01:12)
[2017-04-30] MEDS: cloNIDine HCL 0.2 MG TAB PO ×2 (03:54→09:37)
[2017-04-30] MEDS ORDERED: ENALAPRIL MALEATE 10 MG TAB PO (09:00)
[2017-04-30] MEDS: HYDROCHLOROTHIAZIDE 25 MG TAB PO (09:36)
[2017-04-30] MEDS: ASPIRIN 81 MG CHEW TAB CHEW (09:37)
[2017-04-30] MEDS: METOPROLOL SUCCINATE 25 MG EXTENDED RELEASE TAB PO (09:37)
[2017-04-30] MEDS: CITALOPRAM HYDROBROMIDE 40 MG TAB PO (09:38)
[2017-04-30] MEDS: FENOFIBRATE 145 MG TAB PO (09:39)
[2017-04-30] MEDS: valACYclovir HCL 500 MG TAB PO (09:39)
[2017-04-30] MEDS: FINASTERIDE 5 MG TAB PO (09:39)
[2017-04-30] MEDS: buPROPion HCL 75 MG TAB PO (09:39)
[2017-04-30] MEDS: ODEFSEY PO (09:43)
[2017-04-30] MEDS: SODIUM CHLORIDE 0.9% FLUSH 10 ML FLUSH IV FLUSH ×2 (09:43→21:27)
[2017-04-30 13:16] LABS: ANION GAP 10 MEQ/L (5-15); BICARBONATE 23.5 MEQ/L (21.0-32.0); BLOOD UREA NITROGEN 141 MG/DL (7-18); CALCIUM 8.9 MG/DL (8.5-10.1); CHLORIDE 104 MEQ/L (98-107); CREATININE 7.55 MG/DL (0.60-1.30); GLOMERULAR FILTRATION RATE 8 ML/MIN (>89); GLUCOSE,RANDOM 129 MG/DL (74-106); POTASSIUM 4.4 MEQ/L (3.5-5.1); SODIUM (NA) 137 MEQ/L (136-145)
[2017-04-30] MEDS: LEVOFLOXACIN 250 MG TAB PO (17:47)
[2017-04-30] MEDS: SODIUM CHLOR 0.45% 1000 ML INJ 1,000 ML IV (17:47)
[2017-04-30] MEDS: ATORVASTATIN 80 MG TAB PO (21:26)
[2017-04-30] MEDS: TAMSULOSIN HCL 0.4 MG CAP PO (21:27)
[2017-05-01 02:23] LABS: ANION GAP 12 MEQ/L (5-15); BICARBONATE 20.9 MEQ/L (21.0-32.0); BLOOD UREA NITROGEN 123 MG/DL (7-18); CALCIUM 8.2 MG/DL (8.5-10.1); CHLORIDE 104 MEQ/L (98-107); GLUCOSE,RANDOM 93 MG/DL (74-106); POTASSIUM 4.1 MEQ/L (3.5-5.1); SODIUM (NA) 137 MEQ/L (136-145)
[2017-05-01 02:30] LABS: CREATININE 6.53 MG/DL (0.60-1.30); GLOMERULAR FILTRATION RATE 9 ML/MIN (>89)
[2017-05-01] MEDS: SODIUM CHLOR 0.45% 1000 ML INJ 1,000 ML IV (04:35)
[2017-05-01 06:46] LABS: ANION GAP 12 MEQ/L (5-15); BICARBONATE 17.3 MEQ/L (21.0-32.0); BLOOD UREA NITROGEN 119 MG/DL (7-18); CHLORIDE 106 MEQ/L (98-107); CREATININE 6.01 MG/DL (0.60-1.30); GLOMERULAR FILTRATION RATE 10 ML/MIN (>89); GLUCOSE,RANDOM 89 MG/DL (74-106); PHOSPHORUS 6.2 MG/DL (2.5-4.9); POTASSIUM 4.2 MEQ/L (3.5-5.1); SODIUM (NA) 135 MEQ/L (136-145)
[2017-05-01 06:50] LABS: CREATINE KINASE 95 U/L (39-308)
[2017-05-01] MEDS: LEVOFLOXACIN 250 MG TAB PO (07:31)
[2017-05-01] MEDS: cloNIDine HCL 0.2 MG TAB PO (07:31)
[2017-05-01] MEDS: FINASTERIDE 5 MG TAB PO (07:31)
[2017-05-01] MEDS: METOPROLOL SUCCINATE 25 MG EXTENDED RELEASE TAB PO (07:32)
[2017-05-01] MEDS: ASPIRIN 81 MG CHEW TAB CHEW (07:32)
[2017-05-01] MEDS: CITALOPRAM HYDROBROMIDE 40 MG TAB PO (07:32)
[2017-05-01] MEDS: ODEFSEY PO (07:33)
[2017-05-01] MEDS: buPROPion HCL 75 MG TAB PO (07:33)
[2017-05-01] MEDS: SODIUM CHLORIDE 0.9% FLUSH 10 ML FLUSH IV FLUSH ×2 (07:39→21:00)
[2017-05-01] MEDS: SODIUM CHLOR 0.9% 1000 ML INJ 1,000 ML IV ×2 (09:30→21:25)
[2017-05-01] MEDS: CALCIUM ACETATE 667 MG CAP PO ×2 (12:03→17:22)
[2017-05-01] MEDS: TAMSULOSIN HCL 0.4 MG CAP PO (21:56)
[2017-05-01] MEDS: ATORVASTATIN 80 MG TAB PO (21:56)
[2017-05-01] MEDS: MORPHINE SULFATE 2 MG/ML INJ IV PUSH (23:35)
[2017-05-02] MEDS: cloNIDine HCL 0.1 MG TAB PO ×3 (01:10→18:55)
[2017-05-02] MEDS: SODIUM CHLOR 0.9% 1000 ML INJ 1,000 ML IV ×3 (02:52→22:53)
[2017-05-02 06:48] LABS: ANION GAP 10 MEQ/L (5-15); BICARBONATE 21.1 MEQ/L (21.0-32.0); BLOOD UREA NITROGEN 101 MG/DL (7-18); CALCIUM 8.5 MG/DL (8.5-10.1); CHLORIDE 108 MEQ/L (98-107); CREATININE 4.93 MG/DL (0.60-1.30); GLOMERULAR FILTRATION RATE 12 ML/MIN (>89); GLUCOSE,RANDOM 91 MG/DL (74-106); POTASSIUM 3.5 MEQ/L (3.5-5.1); SODIUM (NA) 139 MEQ/L (136-145)
[2017-05-02] MEDS: SODIUM CHLORIDE 0.9% FLUSH 10 ML FLUSH IV FLUSH ×2 (09:00→20:05)
[2017-05-02] MEDS: ASPIRIN 81 MG CHEW TAB CHEW (10:19)
[2017-05-02] MEDS: CALCIUM ACETATE 667 MG CAP PO ×3 (10:19→18:55)
[2017-05-02] MEDS: FINASTERIDE 5 MG TAB PO (10:19)
[2017-05-02] MEDS: CITALOPRAM HYDROBROMIDE 40 MG TAB PO (10:19)
[2017-05-02] MEDS: cloNIDine HCL 0.2 MG TAB PO (10:19)
[2017-05-02] MEDS: buPROPion HCL 75 MG TAB PO (10:20)
[2017-05-02] MEDS: LEVOFLOXACIN 250 MG TAB PO (10:20)
[2017-05-02] MEDS: METOPROLOL SUCCINATE 25 MG EXTENDED RELEASE TAB PO (10:20)
[2017-05-02] MEDS: ODEFSEY PO (10:28)
[2017-05-02] MEDS ORDERED: cloNIDine HCL 0.1 MG TAB PO (11:30)
[2017-05-02] MEDS ORDERED: hydrALAZINE HCL 10 MG TAB PO (11:30)
[2017-05-02] MEDS: ONDANSETRON HCL 4 MG/2 ML VIAL IV PUSH (12:45)
[2017-05-02] MEDS: ATORVASTATIN 80 MG TAB PO (20:06)
[2017-05-02] MEDS: TAMSULOSIN HCL 0.4 MG CAP PO (20:06)
[2017-05-03 04:41] LABS: ANION GAP 8 MEQ/L (5-15); BICARBONATE 24.2 MEQ/L (21.0-32.0); BLOOD UREA NITROGEN 85 MG/DL (7-18); CALCIUM 7.6 MG/DL (8.5-10.1); CHLORIDE 107 MEQ/L (98-107); CREATININE 3.72 MG/DL (0.60-1.30); GLOMERULAR FILTRATION RATE 17 ML/MIN (>89); GLUCOSE,RANDOM 98 MG/DL (74-106); POTASSIUM 3.2 MEQ/L (3.5-5.1); SODIUM (NA) 139 MEQ/L (136-145)
[2017-05-03] MEDS: POTASSIUM CHLORIDE 20 MEQ PWD PACKET PO (08:00)
[2017-05-03] MEDS: METOPROLOL SUCCINATE 50 MG EXTENDED RELEASE TAB PO (08:14)
[2017-05-03] MEDS: CITALOPRAM HYDROBROMIDE 40 MG TAB PO (08:14)
[2017-05-03] MEDS: ODEFSEY PO (08:14)
[2017-05-03] MEDS: CALCIUM ACETATE 667 MG CAP PO ×3 (08:14→17:49)
[2017-05-03] MEDS: SODIUM CHLORIDE 0.9% FLUSH 10 ML FLUSH IV FLUSH ×2 (08:15→20:24)
[2017-05-03] MEDS: ASPIRIN 81 MG CHEW TAB CHEW (08:15)
[2017-05-03] MEDS: cloNIDine HCL 0.1 MG TAB PO ×3 (08:15→17:49)
[2017-05-03] MEDS: FINASTERIDE 5 MG TAB PO (08:15)
[2017-05-03] MEDS: LEVOFLOXACIN 250 MG TAB PO (08:15)
[2017-05-03] MEDS: buPROPion HCL 75 MG TAB PO (08:15)
[2017-05-03] MEDS: SODIUM CHLOR 0.9% 1000 ML INJ 1,000 ML IV ×2 (09:13→20:24)
[2017-05-03 11:37] LABS: CALCIUM 7.9 MG/DL (8.5-10.1); CALCIUM-PROTEIN CORRECTED 8.4 MG/DL (8.5-10.1)
[2017-05-03 11:37] LABS: TOTAL PROTEIN 6.3 GM/DL (6.4-8.2)
[2017-05-03] MEDS: POTASSIUM CHLORIDE 20 MEQ CONTROLLED RELEASE TAB PO (11:54)
[2017-05-03] MEDS: ATORVASTATIN 80 MG TAB PO (20:24)
[2017-05-03] MEDS: TAMSULOSIN HCL 0.4 MG CAP PO (20:24)
[2017-05-04 07:25] LABS: AUTOMATED NEUTROPHIL # 2.8 TH/MM3 (1.8-7.7); BASOPHIL % 0.7 % (0.0-2.0); EOSINOPHIL # 0.1 TH/MM3 (0-0.4); EOSINOPHIL % 1.6 % (0.0-4.0); HEMATOCRIT 34.1 % (39.0-51.0); HEMO FLAGS DIFF FINAL; HEMOGLOBIN 11.7 GM/DL (13.0-17.0); LYMPH % 34.4 % (9.0-44.0); LYMPHOCYTE # 1.8 TH/MM3 (1.0-4.8); MEAN CELL VOLUME 98.1 FL (80.0-100.0); MEAN CORPUSCULAR HEMOGLOBIN 33.7 PG (27.0-34.0); MEAN CORPUSCULAR HGB CONC 34.4 % (32.0-36.0); MEAN PLATELET VOLUME 8.6 FL (7.0-11.0); MONO % 10.5 % (0.0-8.0); MONOCYTE # 0.6 TH/MM3 (0-0.9); NEUT % 52.8 % (16.0-70.0); PLATELET COUNT 188 TH/MM3 (150-450); RED BLOOD COUNT 3.48 MIL/MM3 (4.50-5.90); RED CELL DISTRIBUTION WIDTH 14.2 % (11.6-17.2); WHITE BLOOD COUNT 5.3 TH/MM3 (4.0-11.0)
[2017-05-04 07:39] LABS: ALBUMIN 2.6 GM/DL (3.4-5.0); ALT (GPT) 20 U/L (12-78); ANION GAP 6 MEQ/L (5-15); AST (GOT) 19 U/L (15-37); BICARBONATE 26.6 MEQ/L (21.0-32.0); BLOOD UREA NITROGEN 65 MG/DL (7-18); CALCIUM 7.5 MG/DL (8.5-10.1); CHLORIDE 107 MEQ/L (98-107); CREATININE 3.01 MG/DL (0.60-1.30); GLOMERULAR FILTRATION RATE 22 ML/MIN (>89); GLUCOSE,RANDOM 89 MG/DL (74-106); POTASSIUM 3.4 MEQ/L (3.5-5.1); SODIUM (NA) 140 MEQ/L (136-145)
[2017-05-04 07:46] LABS: ALKALINE PHOSPHATASE 42 U/L (45-117); TOTAL BILIRUBIN ADULT 0.4 MG/DL (0.2-1.0); TOTAL PROTEIN 6.1 GM/DL (6.4-8.2)
[2017-05-04] MEDS: ODEFSEY PO (08:33)
[2017-05-04] MEDS: cloNIDine HCL 0.1 MG TAB PO ×2 (08:34→12:45)
[2017-05-04] MEDS: buPROPion HCL 75 MG TAB PO (08:34)
[2017-05-04] MEDS: CALCIUM ACETATE 667 MG CAP PO ×2 (08:34→12:45)
[2017-05-04] MEDS: POTASSIUM CHLORIDE 20 MEQ CONTROLLED RELEASE TAB PO (08:34)
[2017-05-04] MEDS: METOPROLOL SUCCINATE 50 MG EXTENDED RELEASE TAB PO (08:34)
[2017-05-04] MEDS: FINASTERIDE 5 MG TAB PO (08:34)
[2017-05-04] MEDS: CITALOPRAM HYDROBROMIDE 40 MG TAB PO (08:34)
[2017-05-04] MEDS: LEVOFLOXACIN 250 MG TAB PO (08:34)
[2017-05-04] MEDS: ASPIRIN 81 MG CHEW TAB CHEW (08:34)
[2017-05-04] MEDS: SODIUM CHLOR 0.9% 1000 ML INJ 1,000 ML IV (08:35)
[2017-05-04] MEDS: SODIUM CHLORIDE 0.9% FLUSH 10 ML FLUSH IV FLUSH (08:35)
[2017-05-04] MEDS: POTASSIUM CHLORIDE 20 MEQ PWD PACKET PO (11:01)
== END 2017-05-04 17:05 | disposition home or self-care (01) | DRG 683 ==
LOC: NEPE 17:00 → NEDA 20:04 → NEPFCDU 21:30 → N06A 04-30 22:53
PROC: 0T9B70Z Drainage of Bladder with Drainage Device, Via Natural or Artificial Opening (ICD-10-PCS; principal; 2017-04-30)
DX: N17.9 Acute kidney failure, unspecified (principal); N13.8 Other obstructive and reflux uropathy; I12.9 Hypertensive chronic kidney disease with stage 1 through stage 4 chronic kidney disease, or unspecified chronic kidney disease; N40.1 Benign prostatic hyperplasia with lower urinary tract symptoms; N18.3 Chronic kidney disease, stage 3 (moderate); E87.6 Hypokalemia; E86.0 Dehydration; E78.5 Hyperlipidemia, unspecified; F32.9 Major depressive disorder, single episode, unspecified; F41.9 Anxiety disorder, unspecified; Z21 Asymptomatic human immunodeficiency virus [HIV] infection status; Z82.49 Family history of ischemic heart disease and other diseases of the circulatory system; Z84.1 Family history of disorders of kidney and ureter; Z85.528 Personal history of other malignant neoplasm of kidney; Z86.19 Personal history of other infectious and parasitic diseases; Z87.891 Personal history of nicotine dependence; Z88.0 Allergy status to penicillin; Z88.1 Allergy status to other antibiotic agents; Z90.5 Acquired absence of kidney
CPT/HCPCS: 76775; 80048; 80053; 81001; 82550; 84100; 84155; 85025; 87086; 96361; 96374; 99285-25

== ENCOUNTER → 2017-05-10 | Outpatient (CLI) | payer BC ==
[~2017-05-10] MED LIST changes: +ASPI-516 CHEW; -ASPI1TAB69 PO; -ATEN25TA PO; -ATOR1TAB18 PO; +ATOR80TA45 PO; +CITA40TA4 PO; +CLON0.2T PO; +HYDR25TA5 PO; +LEVA250T14 PO; +METO1TAB42 PO; -PARO20TA2 PO
[2017-05-10 14:02] LABS: BICARBONATE 27.2 MEQ/L (21.0-32.0); CALCIUM 8.7 MG/DL (8.5-10.1); CREATININE 2.28 MG/DL (0.60-1.30)
== END ==
LOC: CLAB 13:29
PROVIDERS: ATTEND Specialist
DX: N40.0 Benign prostatic hyperplasia without lower urinary tract symptoms (principal); B20 Human immunodeficiency virus [HIV] disease; N18.9 Chronic kidney disease, unspecified; R63.4 Abnormal weight loss
CPT/HCPCS: 36415; 80048

== ENCOUNTER 2017-05-14 08:01 | Day surgery (SDC) | payer BC ==
[~2017-05-14] VITALS: Ht 175.3 cm; Wt 62.7 kg
[2017-05-14 08:24] VITALS: BP 104/72; PULSE 70; RESP 20; TEMP 97.8; O2SAT 100
[2017-05-14] MEDS ORDERED: EMTR1TAB2 PO (08:27)
[2017-05-14 09:08] LABS: PROTHROMBIN TIME - PATIENT 10.2 SEC (9.8-11.6)
[2017-05-14] MEDS ORDERED: MIDAZOLAM HCL 2 MG/2 ML VIAL ONE (11:09)
[2017-05-14] MEDS ORDERED: fentaNYL CITRATE 250 MCG/5 ML AMP ONE (11:09)
[2017-05-14] MEDS ORDERED: LEVOFLOXACIN 500 MG PREMIX INJ 100 ML IV ONE (11:25)
[2017-05-14] MEDS ORDERED: IOHEXOL 350 MG/ML 50 ML BTL (for RAD DIAG) OTHER ONE (11:45)
--- NOTE | 2017-05-14 12:08 | PD.RAD ---
Post Procedure Progress Note Pre Procedure Diagnosis: (1) Urinary obstruction Post Procedure Diagnosis: (1) Urinary obstruction Procedure Date: May 14, 2017 Supervising Radiologist: Negrito Hummel JR Proceduralist/Assist: Elisa Wiggins RT(R)(), Clau Washburn RT(R)(CV) Anesthesia: Conscious Sedation Plan of Activity Patient to Unit: ROPU Patient Condition: Good See PACS Report for procedural detail/treatment Drainage Procedure Procedure 1 Imaging Guidance: Fluoroscopy, Ultrasound Procedure Type: Suprapubic Tube Procedure: Placement Kazakh: 16 Drainage: [place] drainage Fluid Description: Clear Findings: Suprapubic catheter in good position and draining well. Chadwick removed. Plan Remove suture in 1-2 weeks Jr. Shaheed,Negrito Castellanos MD May 14, 2017 12:08
[2017-05-14 12:10] VITALS: BP 73/54; PULSE 57; RESP 18; TEMP 96; O2SAT 98
[2017-05-14 12:25] VITALS: BP 94/63; PULSE 54; RESP 18; O2SAT 99
[2017-05-14 12:55] VITALS: BP 88/64; PULSE 54; RESP 18; O2SAT 98
[2017-05-14 13:25] VITALS: BP 103/67; PULSE 51; RESP 18; O2SAT 99
--- NOTE | 2017-05-14 13:55 | RADRPT ---
EXAM DATE/TIME: 05/14/2017 12:19 [facility] COMPARISON: No previous studies available for comparison. 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 Suprapubic ca theter placement requested. MEDICAL HISTORY : HIV Hep C Chronic kidney disease HTN Prostatic hypertrophy Renal cell carcinoma SURGICAL HISTORY : right nephrectomy ENCOUNTER: Initial ACUITY: 4- 6 days PAIN SCORE: 5/10 LOCATION: lower quadrant FLUORO TIME: 1.7 minutes IMAGE SERIES: 1 SEDATION TIME: 25 minutes CONTRAST: 50 cc Omnipaque 350 (iohexol) Suprapubic tube MEDICATION(S): 1.) 4 mg midazolam (Versed) IV 2.) 200 mcg fentanyl (Sublimaze) IV DEVICE(S): 1.) Chadwick catheter 16FR PROCEDURE : 1. Ultrasound localization of the bladder. 2. Suprapubic catheter placement. 3. Conscious sedation with continuous EKG and oximetry monitoring. The risks, benefits and alternatives to the procedure were explained and verbal and written consent w as obtained. The site was prepped in sterile fashion. Full sterile technique was used, including ca p, mask, sterile gloves and gown and a large sterile sheet. Hand hygiene and 2% chlorhexidine and/or betadine/alcohol prep was utilized per protocol for cutaneous antisepsis. Sterile gel and sterile p robe cover were utilized for ultrasound guidance. The skin and subcutaneous tissues were infiltrated with local anesthetic solution. Utilizing ultrasound and fluoroscopic guidance the urinary bladder was localized. Just above the pub ic symphysis in the midline a dermatotomy was made and access of urinary bladder performed utilizing a 21 gauge needle. Serial dilatation was performed to accept a 16 Micron[place] Chadwick catheter. The balloon was inflated. A 2-0 silk suture was utilized to anchor the suprapubic catheter. Ultrasound and fluor oscopic visualization performed to document the appropriate position. Clear urine draining from the s uprapubic catheter. The existing Chadwick catheter was removed. Conscious sedation was performed with the prescribed dosages and duration as above in the presence of an independent trained radiology nurse to assist in the monitoring of the patient. EKG and oximetry remained stable throughout the procedure. The patient tolerated the procedure well and there were n o complications. The patient was sent to post anesthesia recovery in stable condition. CONCLUSION: Uncomplicated suprapubic catheter placement. Removal of the anchoring suture in one to 2 weeks. Negrito Hummel Jr., MD on May 14, 2017 at 13:44 Board Certified Radiologist. This report was verified electronically.
[2017-05-14 14:00] VITALS: BP 107/67; PULSE 50; RESP 18; O2SAT 100
== END 2017-05-14 14:35 | disposition home or self-care (01) ==
LOC: HROP 08:01 → HRIP 08:07 → HROP 14:35
PROVIDERS: ATTEND Specialist
DX: N40.1 Benign prostatic hyperplasia with lower urinary tract symptoms (principal); N13.8 Other obstructive and reflux uropathy; R33.8 Other retention of urine; I12.9 Hypertensive chronic kidney disease with stage 1 through stage 4 chronic kidney disease, or unspecified chronic kidney disease; N18.9 Chronic kidney disease, unspecified; B19.20 Unspecified viral hepatitis C without hepatic coma; C64.9 Malignant neoplasm of unspecified kidney, except renal pelvis; Z21 Asymptomatic human immunodeficiency virus [HIV] infection status
CPT/HCPCS: 51102; 76942; 77002; 85610; 85730; 99152; 99153; C1769; C1894; J1956; J2250; J3010; Q9967